=== PATIENT | female | born 1955 | race Caucasian/White ===

== ENCOUNTER 2019-09-16 19:15 | Emergency (ER) | payer OTHER, MEDICAID ==
[~2019-09-16] VITALS: Ht 162.6 cm; Wt 56.2 kg
[2019-09-16 19:18] VITALS: BP 136/88
== END 2019-09-16 20:29 | disposition home or self-care (01) ==
LOC: ED 19:15
DX: J40 Bronchitis, not specified as acute or chronic (principal); Z59.0 Homelessness